=== PATIENT | female | born 1935 | race Hispanic/Latino ===

== ENCOUNTER 2018-09-10 05:42 | Day surgery (SDC) | payer MEDICARE, MEDICAID ==
[2018-08-28 11:32] VITALS: BMI 27.0
[2018-09-10] MEDS ORDERED: cefTRIAXone (Rocephin) 1 gm Inj ONE (08:03)
[2018-09-10] MEDS ORDERED: Propofol 10 mg/ml Inj (20 ML) ONE (08:22)
[2018-09-10] MEDS ORDERED: Iohexol 240 (50 ml) ONE (08:22)
[2018-09-10] MEDS ORDERED: ePHEDrine 50 mg/ml Inj ONE (08:46)
[2018-09-10] MEDS ORDERED: Lactated Ringer's 1,000 ML IV SCH (09:00)
[2018-09-10 09:57] VITALS: BP 140/71; PULSE 75; RESP 20; TEMP 97.9; O2SAT 94
--- NOTE | 2018-09-10 10:24 | RAD ---
Date of service: 09/10/2018 PROCEDURE: Retrograde pyelogram HISTORY: C COMPARISON: TECHNIQUE: Fluoroscopy was provided in the operating room. 9.9 sec of fluoro time. Cumulative dose 1.65 mGy. FINDINGS: Five images were submitted showing partial opacification of both ureters and collecting systems as well as the bladder. No obstruction seen IMPRESSION: As above
[2018-09-10] MEDS ORDERED: Gentamicin 80 mg/2mL Inj. ONE (11:02)
--- NOTE | 2018-09-29 02:31 | PN ---
DATE: 09/10/2018 IMMEDIATE POSTOPERATIVE NOTE See the history and physical. See the operative note. This is an immediate postop note. The patient with recurrent infections, urinary incontinence, cystocele, voiding dysfunction, severely debilitating. The postoperative diagnoses are same. The patient is stable. She had an cystoscopy and bilateral retrograde pyelogram. No biopsies taken. From a Urology standpoint, she remains stable. We are going to recommend FARROWING MANAGER or a urogynecologist for followup. From a Urology standpoint, we did cystoscopy and retrograde pyelogram to make sure there is no major abnormality from our end, bladder cancer particularly, concern of frequently confused item. We have been encouraging her and she was extremely pleasant, but somewhat noncompliant. We have been encouraging her for further testing, which she underwent now. , but meanwhile today, everything seems well. Burt Arevalo MD
--- NOTE | 2018-09-29 07:55 | OP ---
PROCEDURE DATE: 09/10/2018 PREOPERATIVE DIAGNOSIS: Voiding dysfunction, recurrent urinary tract infection, large cystocele, hematuria. POSTOPERATIVE DIAGNOSIS: Voiding dysfunction, recurrent urinary tract infection, large cystocele, hematuria. PROCEDURE: Exam under anesthesia, cystoscopy, bilateral retrograde pyelograms. BIOPSIES: There were no biopsies taken. COMPLICATIONS: No complications. OPERATIVE FINDINGS: Relatively within normal limit bladder mucosa, is currently erythematous. No biopsies were taken. It seems like a chronically infected bladder which is consistent with the symptoms and a cystocele noted. See the plans as listed below. Main plan is to see SAFETY INVESTIGATOR. Blood loss was less than 20 mL. There is no other major abnormalities. Please go by ED. We identified the orifices. I do not see any lesions there. There are signs of chronic ascites. Retrograde pyelograms showing and the pelvic exam is noted in the . Patient tolerated without complications. RECOMMENDATIONS: My new recommendation for the patient, I think, she will be best served by a SAFETY INVESTIGATOR visit. We will discuss the further options. We will be recommending bleeding. Burt Arevalo MD
--- NOTE | 2018-09-29 10:08 | HP ---
DATE OF EXAM: 09/10/2018 UROLOGY ADMISSION HISTORY AND PHYSICAL REASON FOR ADMISSION: Workup of incontinence. HISTORY OF PRESENT ILLNESS: A very pleasant lady who we know well. She has recurrent infection. She also has cystocele. She is a very pleasant, but extremely noncompliant lady. She is here today for further diagnostic study. PAST MEDICAL AND SURGICAL HISTORY: She also sees Dr. Leach in [facility]. We discussed options with her. From our end, she Macrobid antibiotic. We discussed new options today with the patient. We recommended that she have further . She is in today for an exam under anesthesia, cystoscopy, retrograde pyelogram, and then further plans will follow. PAST MEDICAL AND SURGICAL HISTORY: As listed on the chart. REVIEW OF SYSTEMS: . MEDICATIONS: See chart. ALLERGIES: SEE CHART. SOCIAL HISTORY: Unremarkable. PHYSICAL EXAMINATION GENERAL: A well-nourished female, in no apparent distress. VITAL SIGNS: Within normal limits. LUNGS: Clear. HEART: S1, S2. ABDOMEN: Soft, nontender. No flank mass appreciated. PELVIC: Deferred for now, but I will mention again about the cystocele. Nothing concerning other than the routine. See the operative note. DIAGNOSES: Voiding dysfunction, urinary incontinence, cystocele, recurrent infection, etc. PLAN: We have discussed various options with the patient. Burt Arevalo MD
== END 2018-09-10 12:05 | disposition home or self-care (01) ==
LOC: SDS 05:42
PROVIDERS: ATTEND Urology
DX: N30.90 Cystitis, unspecified without hematuria (principal); I10 Essential (primary) hypertension; N39.46 Mixed incontinence; E55.9 Vitamin D deficiency, unspecified; F41.9 Anxiety disorder, unspecified
CPT/HCPCS: 52005; 74420; C1758; J0696; J1580; J2001; J2405; J2704; J3010; J7120 ×2; Q9966